=== PATIENT | female | born 1985 | race American Indian/Alaskan Native ===

== ENCOUNTER 2018-06-24 16:16 | Emergency (ER) | payer MEDICAID ==
--- NOTE | 2018-06-24 17:36 | ED PDOC ---
Arrival/HPI - General Time Seen by Provider: 06/24/18 17:20 - History of Present Illness Narrative History of Present Illness (Text): 32 yr old female w/ no ppmhx p/w LLE redness and itchiness. Pt notes LLE redness and itchininess began last night, circular, without streaking. She notes that she may have bitten by a bug last night night. and notes that the area of redness has exapanded. She denies seeing any spiders with a red hourglass or a brown spider of any kind. She denies any fall or trauma. No leg swelling or parathesias. No running in the forest or contact with any poison gayle. No new creams. No fever, chills or night sweats. No other complaints. Family/Social History Family/Social History: Unknown Family HX Allergies/Home Meds Allergies/Adverse Reactions: Allergies No Known Allergies Allergy (Verified 06/24/18 17:28) Review of Systems - Review of Systems Constitutional: absent: Fatigue, Weight Change Eyes: absent: Vision Changes, Photophobia ENT: absent: Hearing Changes Respiratory: absent: SOB, Cough, Sputum Cardiovascular: absent: Chest Pain, Palpitations, Calf Pain, ROMAN Gastrointestinal: absent: Abdominal Pain Genitourinary Female: absent: Dysuria, Frequency, Hematuria Musculoskeletal: absent: Arthralgias, Back Pain, Neck Pain Skin: Rash. absent: Pruritis, Laceration, Abscess, Ulcer Neurological: absent: Headache, Dizziness, Focal Weakness, Gait Changes, Speech Changes Endocrine: absent: Diaphoresis Hemo/Lymphatic: absent: Adenopathy Psychiatric: absent: Anxiety Physical Exam Vital Signs Reviewed: Yes Temperature: Afebrile Blood Pressure: Normal Pulse: Regular Respiratory Rate: Normal Appearance: Positive for: Well-Appearing, Non-Toxic Pain Distress: None Mental Status: Positive for: Alert and Oriented X 3 - Systems Exam Head: Present: Atraumatic Pupils: Present: PERRL Extroacular Muscles: Present: EOMI Conjunctiva: Present: Normal Mouth: Present: Moist Mucous Membranes Pharnyx: Present: Normal. No: ERYTHEMA, EXUDATE Neck: Present: Normal Range of Motion. No: Meningeal Signs, MIDLINE TENDERNESS Respiratory/Chest: Present: Clear to Auscultation, Good Air Exchange Cardiovascular: Present: Regular Rate and Rhythm, Normal S1, S2. No: Murmurs Abdomen: Present: Normal Bowel Sounds. No: Tenderness, Distention, Peritoneal Signs Back: Present: Normal Inspection. No: CVA Tenderness, Midline Tenderness Upper Extremity: Present: Normal Inspection, Normal ROM, NORMAL PULSES, Neurovascularly Intact, Capillary Refill < 2s. No: Deformity Lower Extremity: Present: NORMAL PULSES, Normal ROM, Neurovascularly Intact. No: Edema, CALF TENDERNESS, Cyanosis, Braxton's Sign, Swelling Neurological: Present: GCS=15, CN II-XII Intact, Speech Normal Skin: Present: Warm, Dry, Rashes (anterior RLE circular erythema w/ small serous filled blister at center. erythema 4 cm in diamter, circular, blanches, no crepitus or fluctuance. ) Psychiatric: Present: Alert, Oriented x 3, Normal [facility] Medical Decision Making ED Course and Treatment: 32 yr old female p/w LLE redness and blanching erythema to anterior grossman. No distal swelling. N/V intact distally. No signs of trauma or fall. No streaking. No hx of immunocompromise. Likely mild cellulitis 2/2 insect bite. No signs of crepitus. Benadryl and abx script written, endorsed to pt to followup with PMD / clinic and to return if worsens or if not improved. She is agreeable to plan Disposition/Present on Arrival - Present on Arrival Any Indicators Present on Arrival: No - Disposition Have Diagnosis and Disposition been Completed?: Yes Diagnosis: Cellulitis, Bug bite Disposition Time: 17:51 Condition: STABLE Discharge Instructions (ExitCare): Insect Bites and Stings (DC), Cellulitis (ED) Additional Instructions: RETURN IF WORSENING OR IF STREAKING NOTED IN SPITE OF ANTIBIOTIC TREATMENT. RETURN FOR ANY OTHER ISSUES DAYANA MONTE, thank you for letting us take care of you today. Your provider was Taz Castañeda and you were treated for ABNORMAL SKIN INTEGRITY, LOWER EXTREMITY PROBLEM. The emergency medical care you received today was directed at your acute symptoms. If you were prescribed any medication, please fill it and take as directed. It may take several days for your symptoms to resolve. Return to the Emergency Department if your symptoms worsen, do not improve, or if you have any other problems. Please contact your doctor or call one of the physicians/clinics you have been referred to that are listed on the Patient Visit Information form that is included in your discharge packet. Bring any paperwork you were given at discharge with you along with any medications you are taking to your follow up visit. Our treatment cannot replace ongoing medical care by a primary care provider outside of the emergency department. Thank you for allowing the [facility] team to be part of your care today. If you had an X-Ray or CT scan: A Radiologist will review the ED reading if any change in treatment is needed we will contact you. If you had a blood, urine, or wound culture: It will take several days for the results, if any change in treatment is needed we will contact you. If you had an STI test: It will take 48 hours for the results. Please call after 1 week if you have not heard back. Prescriptions: Cephalexin [Keflex] 500 mg PO Q6H 5 Days #20 capsule Referrals: [facility] [Outside] - Follow up with primary [facility] [Outside] - Follow up with primary [facility] [Outside] - Follow up with primary Roxy Paige MD [Medical Doctor] - Follow up with primary
[2018-06-24 18:12] VITALS: BP 137/84; PULSE 92; RESP 18; TEMP 98.4; O2SAT 100
== END 2018-06-24 19:28 | disposition home or self-care (01) ==
LOC: ED 16:16
DX: S80.862A Insect bite (nonvenomous), left lower leg, initial encounter (principal); L03.116 Cellulitis of left lower limb; W57.XXXA Bitten or stung by nonvenomous insect and other nonvenomous arthropods, initial encounter